=== PATIENT | female | born 2000 | race Caucasian/White ===

== ENCOUNTER 2022-01-18 13:00 | Emergency (ER) | payer SELFPAY ==
[2022-01-18 13:09] VITALS: BP 120/66; PULSE 100; RESP 15; TEMP 37.2; O2SAT 98
--- NOTE | 2022-01-18 13:15 | DI.RAD_ITS ---
Exam(s) XR ANKLE RT COMPLETE EXAM: XR ANKLE RT COMPLETE CLINICAL HISTORY: lateral pain. TECHNIQUE: 2D digital imaging was performed. COMPARISON: No exams were available for comparison FINDINGS: 3 views Soft tissue swelling noted laterally but no evidence of fracture or widening of the mortise. Talar d ome unremarkable. Base of the 5th metatarsal unremarkable. Ankle and subtalar joints unremarkable. IMPRESSION: Soft tissue swelling but no fractures evident. DATA REPOSITORY: RADIATION DOSE DELIVERED:
--- NOTE | 2022-01-18 13:21 | ED.GENADUL_ITS ---
Discharge Plan Disposition Patient Disposition: HOME Condition: Improving Discharge Details Chief Complaint: Trauma Clinical Impression: Right ankle sprain Primary Care Provider: None,None ED Provider: Sam Mora Discharge Instructions Instructions: Ankle Sprain (ED) Additional Instructions: Elevate above the level of heart to reduce pain and swelling. May apply ice while at rest. Crutches and walking boot while awake and out of bed. You may slowly wean from the crutches over 2 to 3 days time and then wean from the walking boot over approximately 7 to 10 days time. Tylenol and/or ibuprofen as needed for pain. Remove boot for sleeping and for bathing. Medical Decision Making 21-year-old female presents from home after rolling her ankle helping with her children yesterday. She has right lateral malleoli pain and swelling. She is referred for x-ray which does not reveal bony injury. She has difficulty with walking due to pain and we will place her on crutches with a walking boot. She is instructed on management in the outpatient setting. HPI General Mode of arrival: ambulatory . Date/Time Provider Initiated Documentation: 01/18/22 13:04 . Limitations to Documentation: no limitations . Information obtained by: patient . History of Present Illness 21 year old F presents to the emergency department with the chief complaint of Right lateral ankle pain and swelling after deviation yesterday, described as moderate, Quality is described as dull and constant, and is localized to the right and lower extremity. Patient reports no radiation. Patient started experiencing this hour(s) and it has been constant. Rest improves symptom(s), Other factors that worsen symptoms (Weightbearing) . Patient notes no other symptoms.. Patient did receive the following treatments prior to arrival, cold therapy Related Data Allergies Allergy/AdvReac Type Severity Reaction Status Date / Time Penicillins Allergy Severe Unverified 01/18/22 13:19 General Stated Complaint: Trauma YOGI: 4 Review of Systems Narrative: 4 systems reviewed and otherwise negative no PFSH All Active Problems (Updated 01/18/22 @ 14:09 by Sam Mora MD) Right ankle sprain (Acute) Social History Smoking/Tobacco Use Status: Never Smoking risk assessment performed?: Yes Alcohol Intake: current Alcohol Intake frequency: a few times a month Do you feel safe at home: No Do you feel safe in your relationship?: No Exam Narrative Exam Narrative: GEN: awake, alert, oriented 3. Pleasant, well groomed, interactive. HEAD: Normocephalic, atraumatic ENT: Mucous membranes moist, oropharynx unremarkable, External ear exam unremarkable EXT: Full ROM, right lateral malleoli are pain with palpation and swelling present. Normal DP and PT pulse Neuro: Grossly normal neurologic exam, conversant, interactive. Psych: Speech fluent, thoughts congruent, affect normal Course Vital Signs Vital signs: Vital Signs Temperature 37.2 C 01/18/22 13:09 Pulse 100 H 01/18/22 13:09 Respiratory Rate 15 01/18/22 13:09 Blood Pressure 120/66 01/18/22 13:09 Pulse Oximetry 98 01/18/22 13:09 Temperature 37.2 C 01/18/22 13:09 Temperature Source Oral 01/18/22 13:09 Pulse 100 H 01/18/22 13:09 Respiratory Rate 15 01/18/22 13:09 Respiratory Effort 01/18/22 13:17 Blood Pressure 120/66 01/18/22 13:09 Blood Pressure Position Sitting 01/18/22 13:09 Pulse Oximetry 98 01/18/22 13:09 Oxygen Delivery Method Room Air 01/18/22 13:09 Oxygen Flow Rate 0 01/18/22 13:09 Pain Level 20 01/18/22 13:09 PAWSS Have you Been Recently Intoxicated or Drunk Within the Last 30 days?: No Have you Ever Experienced Previous Episodes of Alcohol Withdrawal?: No Have you ever Experienced Withdrawal Seizures?: No Have you ever Experienced Delirium Tremens(DT)s?: No Have you ever undergone Alcohol Rehabilitation Treatment (i.e, inpt ot outpatient treatment programs)?: No Have you ever Experienced Blackouts?: No Have you ever Combined Alcohol with other Downers within the last 90 days?: No Have you ever Combined Alcohol with any other Substance of Abuse during the last 90 days?: No Positive Blood Alcohol level on Presentation? [PCS.BAL]: No Evidence of Increased Autonomic Activity (i.e. HR>120, tremor, sweating, agitation, nausea)?: No Result: 0
--- NOTE | 2022-01-18 14:03 | DI.VRAD_ITS ---
PROCEDURE INFORMATION: Exam: XR Right Ankle Exam date and time: 01/18/2022 1:44 PM Age: 21 years old Clinical indication: Right; Patient HX: Pain, lateral aspect of the RT ankle TECHNIQUE: Imaging protocol: Radiologic exam of the Right ankle. Views: 3 or more views. COMPARISON: No relevant prior studies available. FINDINGS: Bones/joints: There is no evidence of acute fracture.There is no evidence of malalignment or dislocation. Soft tissues: Normal. IMPRESSION: There is no evidence of acute fracture.There is no evidence of malalignment or dislocation. Dictated and Authenticated by: Ana Maria Golden MD. Ordering:KRYSTIAN Vargas MD
[2022-01-18 14:32] VITALS: BP 105/57; PULSE 90; RESP 12; O2SAT 96
== END 2022-01-18 14:36 | disposition home or self-care (01) ==
PROVIDERS: Emergency Provider Emergency Medicine
DX: S93.401A Sprain of unspecified ligament of right ankle, initial encounter (principal); X50.9XXA Other and unspecified overexertion or strenuous movements or postures, initial encounter
CPT/HCPCS: 99283; 73610; 99282

== ENCOUNTER 2022-12-10 13:15 | Emergency (ER) | payer SELFPAY ==
--- NOTE | 2022-12-10 13:15 | RT.EKG_ITS ---
APPROVED REPORT Exam: Resting ECG Reason for Exam: Patient Location: E HR:73 bpm ECG Measurements Heart Rate 73 AXIS MA 160 P 37 QRSd 86 QRS 29 QT 379 T 8 QTc 419 Conclusion Sinus rhythm...normal P axis, V-rate 60- 99 Physician: no stemi
[2022-12-10 13:22] VITALS: BP 113/65; PULSE 89; RESP 16; TEMP 37; O2SAT 97
--- NOTE | 2022-12-10 13:32 | DI.CT_ITS ---
Exam(s) CT ABDOMEN PELVIS W EXAM: CT ABDOMEN PELVIS W CLINICAL HISTORY: rlq pain 3 days, r/o appe. TECHNIQUE: Imaging Protocol: Axial computed tomography images with coronal and sagittal reformatted images were created and reviewed CONTRAST MATERIAL: Intravenous: Omnipaque 350 Contrast volume:100 ml Oral: no COMPARISON: No exams were available for comparison FINDINGS: ABDOMEN: Lung Bases: Normal where visualized. Liver: Normal density. No measurable mass. Gallbladder and biliary tract: No radiodense calculus or dilation. Pancreas: Normal density, no abnormal calcifications or inflammatory process. Spleen: Normal. Kidneys: Normal size, contour and axis. No radiodense stones or obstructive uropathy. No suspicious m asses seen. Adrenal glands: No masses seen. Vasculature: Abdominal aorta non-dilated. Soft tissues: Unremarkable. PELVIS: Bladder: No gross wall thickening. No calculi.No focal mass. Bowel: No obstruction. No bowel wall thickening. Appendix normal. Moderate to increased quantity o f stool. Peritoneal cavity: Trace pelvic fluid. No focal collection or mesenteric inflammatory response. Bones: Unremarkable for age. Reproductive organs: Within normal limits. IUD. The right ovary is positioned anteriorly in the pelv is, in the right lower quadrant. Right ovary shows a collapsing follicle. No findings to suggest to rsion. Lymph nodes: Unremarkable. IMPRESSION:: No evidence of appendicitis. Collapsing follicle of the right ovary. Trace pelvic fluid. No findings to suggest torsion. Findings called to Dr. Correia of the emergency department. RADIATION DOSE DELIVERED: 1,124.54mGy.cm Total DLP DATA REPOSITORY: All CT scans at this facility are submitted to the National Radiology Data Registry (NRDR) Dose Index Registry (DIR) with the [employer] (ACR). RADIATION OPTIMIZATION: All CT scans at this facility use at least one of these dose optimization te chniques: automated exposure control; mA and/or kV adjustment per patient size (includes targeted exa ms where dose is matched to clinical indication); or iterative reconstruction.
--- NOTE | 2022-12-10 13:41 | ED.GENADUL_ITS ---
Discharge Plan Disposition Patient Disposition: Home Condition: Good Discharge Details Chief Complaint: Abd Prob Clinical Impression: Rupture of cyst of right ovary Primary Care Provider: None,None ED Provider: Skyler Correia Discharge Instructions Instructions: Ovarian Cyst (ED) Additional Instructions: At this time it appears that your appendix is normal. Your CAT scan does show evidence of a ruptured ovarian cyst which is likely the cause of your pain. Please take Tylenol and Motrin as needed for pain. If you notice any worsening of your symptoms, or any new symptoms such as vomiting, diarrhea, fever, chills, shortness of breath, chest pain, numbness, weakness, or fainting , please return immediately to the emergency department for reevaluation. Please follow up with your primary care provider as soon as possible for reassessment and r eevaluation. As always, it was a pleasure participating in your medical care today. Medical Decision Making 22-year-old female with no significant past medical history except for x1, presents today for evaluation of abdominal pain. Patient states that about 3 days ago she developed mid abdominal pain. It was achy in nature, occasionally worsened with food. Transition then to her right upper quadrant, and then now today transition down to her right lower quadrant. She has had occasional associated chills. She has had diarrhea over the last 3 days. She is uncertain but thinks she may have seen some blood in her stool. She denies any vomiting. She denies any new medications. She does admit to increased vaginal discharge. She is with a single partner, they do use protection. She denies any history of STDs. No other complaints at this time. No urinary complaints. Symptoms are worsened when she stands lifts or bends. No improving factors otherwise. 3:[address] scan shows evidence of a collapsing follicle in the right ovary, no evidence of torsion. 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 Symptoms appear clinically inconsistent with torsion. No evidence of appendicitis. Reexam shows no evidence of an acute surgical abdomen. Symptoms appear clinically inconsistent with appendicitis, ovarian torsion or tubo- ovarian abscess. Vaginal Pap smear is negative for evidence of abnormality or positivity. Laboratory work-up is normal. At this time I suspect the patient's symptoms are secondary to a ruptured ovarian cyst as it correlates with her symptoms clinically. Will recommend NSAIDs at home, will give Toradol prior to discharge. Discussed red flags which to return. I have extensively reviewed the treatment plan and discharge instructions with the patient. I have addressed all patient concerns at this time. The patient was made aware of what symptoms to monitor for that would warrant a return to the emergency department. Discussed the plan with the patient, they demonstrate verbal understanding and agreement with our assessment and plan at this time. The documentation in this chart was dictated using [employer] dictation software. Please excuse any dictation errors. Patient would like to hold off on prophylactic treatment for gonorrhea and chlamydia at this time. We will wait on results to return. FINDINGS: ABDOMEN: Lung Bases: Normal where visualized. Liver: Normal density. No measurable mass. Gallbladder and biliary tract: No radiodense calculus or dilation. Pancreas: Normal density, no abnormal calcifications or inflammatory process. Spleen: Normal. Kidneys: Normal size, contour and axis. No radiodense stones or obstructive urop athy. No suspicious masses seen. Adrenal glands: No masses seen. Vasculature: Abdominal aorta non-dilated. Soft tissues: Unremarkable. PELVIS: Bladder: No gross wall thickening. No calculi.No focal mass. Bowel: No obstruction. No bowel wall thickening. Appendix normal. Moderate to increased quantity of stool. Peritoneal cavity: Trace pelvic fluid. No focal collection or mesenteric in flammatory response. Bones: Unremarkable for age. Reproductive organs: Within normal limits. IUD. The right ovary is positioned anteriorly in the pelvis, in the right lower quadrant. Right ovary shows a collapsing follicle. No findings to suggest torsion. Lymph nodes: Unremarkable. IMPRESSION:: No evidence of appendicitis. Collapsing follicle of the right ovary. Trace pelvic fluid. No findings to suggest torsion. HPI General Date/Time Provider Initiated Documentation: 12/10/22 13:15 . HPI Narrative: 22-year-old female with no significant past medical history except for x1, presents today for evaluation of abdominal pain. Patient states that about 3 days ago she developed mid abdominal pain. It was achy in nature, occasionally worsened with food. Transition then to her right upper quadrant, and then now today transition down to her right lower quadrant. She has had occasional associated chills. She has had diarrhea over the last 3 days. She is uncertain but thinks she may have seen some blood in her stool. She denies any vomiting. She denies any new medications. She does admit to increased vaginal discharge. She is with a single partner, they do use protection. She denies any history of STDs. No other complaints at this time. No urinary complaints. Symptoms are worsened when she stands lifts or bends. No improving factors otherwise. Related Data Allergies Allergy/AdvReac Type Severity Reaction Status Date / Time Penicillins Allergy Severe Unverified 01/18/22 13:19 General Stated Complaint: Abd Prob YOGI: 3 Review of Systems All systems reviewed & are unremarkable except as noted in HPI and below PFSH All Active Problems (Updated 12/10/22 @ 16:19 by Skyler Correia DO) Rupture of cyst of right ovary (Acute) Social History Smoking/Tobacco Use Status: Never Smoking risk assessment performed?: Yes Alcohol Intake: current Alcohol Intake frequency: a few times a month Substance use type: does not use Housing: house Do you feel safe at home: Yes Do you feel safe in your relationship?: Yes Exam Narrative Exam Narrative: 1.Const: Well-nourished, Well-developed, appearing stated age 2.Eyes: PERRL, no conjunctival injection, and symmetrical lids. 3.ENT: Atraumatic external nose and ears. Moist MM. Neck: Symmetric, trachea midline, No thyromegaly. 4.CVS: +S1/S2, No murmurs or gallops. Peripheral pulses 2+ and equal in all extremities. Brisk capillary refill in all extremities. 5.RESP: Unlabored respiratory effort. Clear to auscultation bilaterally. No wheezes rales or rhonchi 6.GI: Soft, mild right lower quadrant tenderness on palpation. No guarding or rebound. Vaginal exam was performed with female nurse Mitali at bedside. Mild amount of cervical white discharge. Negative for cervical motion tenderness. No redness or lesions otherwise. 7.MSK: Normocephalic/Atraumatic, Extremities w/o deformity or ttp No cyanosis or clubbing, Normal movement of all extremities 8.Skin: Warm, Dry. No rashes or lesions. 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 Sensation grossly intact, no focal neurologic deficits. 10.Psych: (AAO) x3. Appropriate mood and affect Course Vital Signs Vital signs: Vital Signs Temperature 37.0 C 12/10/22 13:22 Pulse 89 12/10/22 13:22 Respiratory Rate 16 12/10/22 13:22 Blood Pressure 113/65 12/10/22 13:22 Pulse Oximetry 97 12/10/22 13:22 Temperature 37.0 C 12/10/22 13:22 Pulse 89 12/10/22 13:22 Respiratory Rate 16 12/10/22 13:22 Blood Pressure 113/65 12/10/22 13:22 Blood Pressure Position Sitting 12/10/22 13:22 Pulse Oximetry 97 12/10/22 13:22 Oxygen Delivery Method Room Air 12/10/22 13:22 Oxygen Flow Rate 0 12/10/22 13:22 Pain Level 6 12/10/22 13:22
[2022-12-10 14:12] LABS: Bilirubin Negative (Negative); Blood Negative (Negative); Clarity Clear (Clear); Glucose Negative (Negative); Ketones Trace mg/dL (Negative); Leukocyte Esterase Negative (Negative); Nitrite Negative (Negative); Specific Gravity 1.025 (1.005-1.025)
[2022-12-10 14:49] LABS: Lactate 0.9 mmol/L (0.6-1.4)
[2022-12-10 14:50] LABS: Abs Immature Grans 0.03 10^3/uL (0.0-0.06); Absolute Basophil Count 0.03 10^3/uL (0.0-0.2); Absolute Eosinophil Count 0.06 10^3/uL (0.0-0.7); Absolute Lymphocyte Count 2.17 10^3/uL (1.2-3.4); Absolute Neutrophil Count 6.01 10^3/uL (1.2-6.7); Basophils % 0.3; Eosinophils % 0.7; HCT 34.8 % (36.0-46.0); HGB 11.9 g/dL (11.2-15.7); Immature Grans % 0.3; Lymphocytes % 24.9; MCH 29.8 pg (27.0-33.0); MCHC 34.2 % (32.0-36.0); MCV 87 fL (80-95); MPV 10.1 fL (8.0-11.0); Monocytes % 4.6; Neutrophils % 69.2; Platelet Count 225 10^3/uL (130-400); RBC 3.99 10^6/uL (3.93-5.22); RDW 12.2 % (11.7-14.6); RDW-SD 39.3 fL
[2022-12-10 15:04] VITALS: BP 117/65; PULSE 84; RESP 14; TEMP 36.6; O2SAT 97
[2022-12-10 15:07] LABS: ALT 29 U/L (14-59); AST 14 U/L (15-37); Albumin 3.6 g/dL (3.4-5.0); Alkaline Phosphatase 61 U/L (46-116); Anion Gap 7.8 mmol/L (3-11); BUN 16 mg/dL (7-18); Bilirubin, Total 0.5 mg/dL (0.2-1.0); CO2 26.2 mmol/L (21.0-32.0); CREATININE 0.7 mg/dL (0.55-1.02); Calcium 8.8 mg/dL (8.5-10.1); Chloride 103 mmol/L (98-107); Estimated GFR 123.78 (mL/min/1.73m2); Glucose 104 mg/dL (74-106); Lipase 35 U/L (16-77); Sodium 137 mmol/L (136-145); Total Protein 7.2 g/dL (6.4-8.2)
[2022-12-10] MEDS: Omnipaque 350 MG/ML 100 ML BTL IJ (15:14)
[2022-12-10] MEDS: Normal Saline - Diluent 50 ML VIAL IJ (15:15)
[2022-12-10] MEDS: Ketorolac 15 MG/ML VIAL IVP (16:36)
--- NOTE | 2022-12-10 16:45 | NUR.NOTE ---
Nursing Note:paper copies of lab results sent with pt at request per dr garrett
--- NOTE | 2022-12-10 17:02 | NUR.NOTE ---
Pt was cleared for discharge by Dr Correia. Dr Correia was informed that pt did not recieve the 500ml NS bolus as ordered. Pt had left the room for her CT scan at the time this RN was planning to offer the IV NS 500cc bolus. This RN explained to patient that she may have this NS 500cc bolus prior to discharge if she wanted. Pt's vital signs stable throughout ER visit. Pt stated that she was okay not to receive this IV NS bolus prior to discharge, she would rather continue with discharge process. All discharge instructions reviewed with patient, pt verbalized understanding of information given.
[2022-12-10 17:11] VITALS: BP 111/70; PULSE 75; O2SAT 98
[2022-12-10 17:13] VITALS: BP 111/70; PULSE 75; RESP 14; TEMP 35.4; O2SAT 98
--- NOTE | 2022-12-10 17:21 | NUR.NOTE ---
1640: Pt Concerned regarding small bruising with small marble size appears to be a hematoma underneath skin at area where prior RN attempted to gain IV access without success. Discussed with pt that it appeared to be a small bruised hematoma to the area, and it should heal fine on its own. Informed pt that area should continue to heal and any signs of redness or warmth would be a concern she may watch for,and she can always come back to see us with any concerns.
[2022-12-11 12:33] LABS: Chlamydia Result Negative (Negative); GC Result Negative (Negative)
== END 2022-12-10 17:02 | disposition home or self-care (01) ==
PROVIDERS: Emergency Provider Student in an Organized Health Care Education/Training Program
DX: R10.31 Right lower quadrant pain (principal); N83.201 Unspecified ovarian cyst, right side
CPT/HCPCS: 36415; 80053; 81025; 83690; 87491; 87591; 93005; 96374; 99284; 74177; 81003; 83605; 85025; 87480; 87510; 87660; 93010; 99283; J1885; J3490

== ENCOUNTER 2023-03-14 14:49 | Emergency (ER) | payer SELFPAY ==
--- NOTE | 2023-03-14 14:52 | ED.GENADUL_ITS ---
Discharge Plan Disposition Patient Disposition: Home Discharge Details Clinical Impression: Headache, unspecified, Chest pain, unspecified Primary Care Provider: None,None ED Provider: Montez Ball Home Meds and New Rx's Prescriptions: Discontinued clindamycin HCl 150 mg capsule 150 mg PO DAILY Discharge Instructions Instructions: Chest Pain (ED), General Headache (ED) Additional Instructions: You were seen in the emergency department for your headache and chest pain. Your blood work showed no sign of a heart attack and your EKG was not concerning. Please return to the emergency department as we discussed if you develop any fevers changes in your chest pain or if you pass out. Please otherwise follow-up with your primary care provider. For your pain please take medications as follows: 1. Take acetaminophen (Tylenol), 1,000 mg (two 500 mg tabs) every 6 hours 2. Take ibuprofen (Advil), 400 mg every 6 hours. Discharge Data Discharge Date/Time-TO BE ENTERED AT DEPARTURE: 03/14/23 17:07 HPI General Date/Time Provider Initiated Documentation: 03/14/23 14:52 . HPI Narrative: MDM This is an overall very well-appearing normothermic and not tachycardic 22-year-old female with multiple medical complaints including chest pain shortness of breath and left-sided headache. Concerning her chest pain there is no tearing quality to suggest dissection. She is low risk for ACS given the duration of time since her symptoms began will obtain single troponin and ECG. No cough to suggest pneumonia. No emesis to suggest esophageal rupture. No reported rash to chest to suggest zoster. No pain out of proportion to suggest necrotizing soft tissue infection. Not hypotensive nor a dialysis patient so my suspicion is low for tamponade. Given no positional component when laying forward but not laying flat my suspicion for pericarditis is low. I considered PE however the patient is PERC negative so I did not send a D-dimer. No trauma and equal breath sounds so low suspicion for pneumothorax. Given her reassuring exam and her lack of risk factors and her reassuring neurological examination with no acute deficits my suspicion for CVA is low so I did not order CT head and I do not feel that the patient is a tPA candidate. No tonic-clonic activity to suggest benefit from EEG. Concerning her left-sided headache it was sudden onset however gradually worsened and was not maximal in onset and as result my suspicion for subarachnoid hemorrhage is low so I do not feel that the patient requires a lumbar puncture nor a CTA given her symptoms have been ongoing intermittently for the past 1 and half weeks. She has no signs of acute otitis media. No vesicles to suggest Malik Em syndrome. No recent carbon monoxide poisoning to suggest CO toxicity. No fevers to suggest meningitis so I do not feel that the patient requires a lumbar puncture. No confusion to suggest encephalitis. No chiropractic manipulation to suggest increased risk for cervical arterial dissection. Will treat with acetaminophen and ibuprofen. Patient has had migraines in the past so certainly her headache could represent a migraine however she has driven her young child to the emergency department so we will defer metoclopramide at this point time. 3:56 PM Reassuring normal troponin. CBC lacks anemia thrombocytopenia and leukocytosis. Negative hCG. Basic metabolic panel showing no acute abnormalities. No RODERICK. Reassuring normal magnesium and TSH. 4:55 PM I met with the patient and explained that I was that planning on attempting to treat her headache with metoclopramide but that this would prevent her from driving home. Given that she is in the emergency department with her 3-year-old child she declined treatment with metoclopramide. I advised primary care follow-up next week. I gave strict return indications including any worsening chest pain any syncope any diaphoresis or any fevers. She understood her return indications was discharged with empiric trial of expectant outpatient management. Chronic conditions affecting the care of the patient: N/A History obtained from an outside historian: N/A External record review: No [facility] [place] [facility] [place] Medications: Acetaminophen ibuprofen Preliminary interpretation chest x-ray showed no acute cardiopulmonary process. Social determinants of health affecting disposition: N/A Management discussed with: N/A Treatment/interventions considered: N/A Response to therapies provided: No change in headache HPI This is a 22-year-old female with history of migraine headaches arriving to the emergency department via private vehicle in the setting of left ear sensitivity chest pain and headache with shortness of breath for the past approximately 1 and half weeks. Patient initially checked in with her 3-year-old son and subsequently approximately an hour and a half later she checked in herself. Patient reports that she had a sudden but not maximal in onset onset headache that began approximately 1.5 weeks ago. It was associate with bilateral neck pain which eventually just became left-sided neck pain. Patient denies chiropractic manipulation. No photophobia. She has been taking ibuprofen but last took it 1 to 2 days ago she did not feel it worked. She takes no other medications. She received her immunizations during childhood. She does have a history of migraines and reports that this does not feel similar to prior episodes of migraines. She has had no fevers nor chills. She has never had a PE nor DVT. She has an IUD in place but does not take oral contraceptive pills. She also endorses a central chest pain. She says that occasionally it radiates into her back and occasionally down to her sternum. She denies alleviators. She does say that it is exacerbated by laying forward. She has not been vomiting recently. She also endorses some shortness of breath and this has been ongoing for the past several years. No dysuria nor frequency. Exam General: Well-appearing in no acute distress speaking in complete sentences. Head: Normocephalic, atraumatic. Eye: extraocular eye movements intact. No conjunctival injection. No scleral icterus. Ear, nose, mouth, throat: Grossly normal inspection. Normal voice, handling secretions normally. Neck: Trachea midline. No bruits. No midline cervical spinal tenderness. No nuchal rigidity. Cardiovascular: Well-perfused distal extremities. Regular rate and rhythm Respiratory: Nonlabored respiration. clear lungs bilaterally Gastrointestinal: Nondistended abdomen. Soft nontender Musculoskeletal: No edema. Moving all 4 extremities spontaneously. Skin: Normal for age and race, grossly normal temperature and turgor. No acute rash. Neurologic: Alert and appropriate, no apparent acute deficits. GCS 15. Cranial nerves II through XII intact grossly. 5 out of 5 bilateral upper lower extremity strength. No dysmetria. No facial asymmetry. Psychiatric: Mood and manner are appropriate. Grooming and personal hygiene are appropriate. Related Data Allergies Allergy/AdvReac Type Severity Reaction Status Date / Time Penicillins Allergy Severe Unverified 03/14/23 14:58 General YOGI: 3 PFSH All Active Problems (Updated 03/14/23 @ 16:55 by Montez Ball MD) Chest pain, unspecified (Acute) Headache, unspecified (Acute) Social History Smoking/Tobacco Use Status: Never Smoking risk assessment performed?: Yes Alcohol Intake: current Alcohol Intake frequency: a few times a month Substance use type: does not use Housing: house Do you feel safe at home: Yes Do you feel safe in your relationship?: Yes
[2023-03-14 14:54] VITALS: BP 117/66; PULSE 87; RESP 17; TEMP 37.2; O2SAT 98
[2023-03-14 15:03] VITALS: BP 117/66; PULSE 87; RESP 17; TEMP 37.2; O2SAT 98
--- NOTE | 2023-03-14 15:15 | DI.RAD_ITS ---
Exam(s) XR CHEST 2V PA LATERAL EXAM: XR CHEST 2V PA LATERAL CLINICAL HISTORY: Shortness of breath chest pain TECHNIQUE: 2D digital imaging was performed of the chest. Two images were obtained. PA and lateral views were obtained. COMPARISON: No exams were available for comparison FINDINGS: MEDIASTINUM: Normal. HEART: Normal. PULMONARY VASCULATURE: Normal. LUNGS: Clear. PLEURAL SPACE: No pleural effusion or pneumothorax. BONE:Within normal limits for the patient's age. OTHER FINDINGS:Normal. IMPRESSION: No acute pulmonary findings. DATA REPOSITORY: RADIATION DOSE DELIVERED:
[2023-03-14 15:27] VITALS: RESP 18
[2023-03-14 15:31] LABS: Abs Immature Grans 0.02 10^3/uL (0.0-0.06); Absolute Basophil Count 0.02 10^3/uL (0.0-0.2); Absolute Eosinophil Count 0.05 10^3/uL (0.0-0.7); Absolute Lymphocyte Count 1.74 10^3/uL (1.2-3.4); Absolute Monocyte Count 0.49 10^3/uL (0.1-0.8); Absolute Neutrophil Count 7.51 10^3/uL (1.2-6.7); Basophils % 0.2; Eosinophils % 0.5; HCT 34.9 % (36.0-46.0); HGB 12.1 g/dL (11.2-15.7); Immature Grans % 0.2; Lymphocytes % 17.7; MCH 30.4 pg (27.0-33.0); MCHC 34.7 % (32.0-36.0); MCV 88 fL (80-95); MPV 9.8 fL (8.0-11.0); Neutrophils % 76.4; Platelet Count 224 10^3/uL (130-400); RBC 3.98 10^6/uL (3.93-5.22); RDW-SD 38.8 fL; WBC 9.83 10^3/uL (4.4-10.8)
[2023-03-14] MEDS: Acetaminophen 500 MG TAB 1000 MG PO (15:33)
[2023-03-14] MEDS: Ibuprofen 600 MG TAB PO (15:33)
[2023-03-14 15:48] LABS: HCG Qual (Serum) Negative
[2023-03-14 15:49] LABS: Anion Gap 9.8 mmol/L (3-11); BUN 15 mg/dL (7-18); CO2 26.2 mmol/L (21.0-32.0); CREATININE 0.6 mg/dL (0.55-1.02); Chloride 103 mmol/L (98-107); Estimated GFR 128.46 (mL/min/1.73m2); Glucose 105 mg/dL (74-106); Potassium 3.8 mmol/L (3.5-5.1); Sodium 139 mmol/L (136-145); Troponin I < 50 ng/L (<or=60)
[2023-03-14 16:00] LABS: Magnesium 1.8 mg/dL (1.8-2.4); TSH (W/Ref FT4) 1.51 uIU/mL (0.36-3.74)
--- NOTE | 2023-03-14 16:38 | DI.VRAD_ITS ---
PROCEDURE INFORMATION: Exam: XR Chest Exam date and time: 03/14/2023 4:07 PM Age: 22 years old Clinical indication: Shortness of breath TECHNIQUE: Imaging protocol: Radiologic exam of the chest. Views: 2 views. COMPARISON: CT ABDOMEN PELVIS W 12/10/2022 3:22 PM FINDINGS: Lungs: No pulmonary consolidation is seen. Pleural spaces: No pleural effusion or pneumothorax is demonstrated. Heart/Mediastinum: Heart size is normal. Bones/joints: The visualized bony structures appear grossly intact, as seen. IMPRESSION: No active disease is seen in the chest. Dictated and Authenticated by: Jose Wyman MD. Ordering:WILLIAM Herrmann MD
== END 2023-03-14 17:07 | disposition home or self-care (01) ==
PROVIDERS: Emergency Provider Emergency Medicine
DX: R51.9 Headache, unspecified (principal); R07.9 Chest pain, unspecified
CPT/HCPCS: 80048; 99283; 71046; 83735; 84443; 84484; 84703; 85025; 99284

== ENCOUNTER → 2023-08-12 04:43 | Outpatient (CLI) | payer MEDICAID, SELFPAY ==
--- NOTE | 2023-08-12 | DI.US_ITS ---
Exam(s) US PELVIS TRANSVAGINAL EXAM: US PELVIS TRANSVAGINAL CLINICAL HISTORY: Z30.431 IUD check up TECHNIQUE: Ultrasound of the pelvis was performed both transabdominal and transvaginal. COMPARISON: CT CT ABDOMEN PELVIS W from 12/10/2022 FINDINGS: UTERUS: Measures 9 cm length x 5 cm AP x 6 cm wide. There are no uterine fibroids.There is an IUD in satisfactory position in the endometrial canal. Endometrial thickness measures 10 mm. There is no fluid in the endometrial canal. CERVIX: There are no obvious nabothian cysts. RIGHT OVARY: Measures 3.4 x 2.9 x 3.2 cm No significant cysts nor masses evident in the right ovary. LEFT OVARY: Measures 0.7 x 3.0 x 3.3 cm Contains dominant follicular cyst measuring 2.4 x 1.7 x 1.6 cm. CUL-DE-SAC: No free fluid evident. IMPRESSION: 1. IUD is in satisfactory position in the endometrial canal. 2. There is a 2.4 x 1.7 x 1.6 cm follicular cyst in left ovary. No solid ovarian masses. 3. No free fluid evident in the adnexal regions and cul-de-sac. DATA REPOSITORY:
== END ==
PROVIDERS: Visit Provider Advanced Practice Midwife
DX: Z30.431 Encounter for routine checking of intrauterine contraceptive device (principal)
CPT/HCPCS: 76830; 76856